=== PATIENT | male | born 2000 | race Caucasian/White ===

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

== ENCOUNTER → 2020-06-15 | Outpatient (CLI) | payer OTHER | LOC: LAB 10:36 | PROVIDERS: ATTEND Neuromusculoskeletal Medicine & OMM | DX: M79.10 Myalgia, unspecified site (principal); R53.83 Other fatigue; R11.0 Nausea; Z20.822 Contact with and (suspected) exposure to COVID-19 ==